=== PATIENT | female | born 1995 | race Caucasian/White ===

== ENCOUNTER → 2018-10-04 | Outpatient (CLI) | payer OTHER ==
[~2018-10-04] MED LIST: CIPRO500 MG PO; INTESTINEX1 CA1 PO; NO TOMA MEDICAMENTO; PEPCID40 MG PO; PHENERGAN25 MG PO; URIN D.S. TABLE1 TAB PO
== END | disposition home or self-care (01) ==
LOC: SONOGRAMA 09:59 → MAMO-SONO 10:15
DX: N60.09 Solitary cyst of unspecified breast (principal); N64.4 Mastodynia; N63.10 Unspecified lump in the right breast, unspecified quadrant; N63.20 Unspecified lump in the left breast, unspecified quadrant